=== PATIENT | female | born 1965 | race Caucasian/White ===

== ENCOUNTER 2022-05-05 04:49 | Emergency (ER) | payer BC ==
[~2022-05-05] VITALS: Ht 167.6 cm; Wt 77.1 kg
[2022-05-05 05:20] VITALS: BP_SYST 170
--- NOTE | 2022-05-05 05:24 | NUR ---
Patient to ER bed BRYAN to gown for evaluation. Side rails up.
--- NOTE | 2022-05-05 05:27 | NUR ---
ER at bedside examining patient.
--- NOTE | 2022-05-05 05:57 | NUR ---
Patient given written and verbal discharge instructions and verbalizes understanding. ER MD discussed with patient the results and treatment provided. Patient in stable condition. ID arm band removed. no Rx of given. Patient educated on pain management and to follow up with PMD. Pain Scale 4/10. Opportunity for questions provided and answered. Medication side effect fact sheet provided.
[2022-05-05 05:59] VITALS: BP_SYST 162
== END 2022-05-05 05:59 | disposition home or self-care (01) ==
LOC: SED 04:49
DX: S61.216A Laceration without foreign body of right little finger without damage to nail, initial encounter (principal); Z79.899 Other long term (current) drug therapy; W27.4XXA Contact with kitchen utensil, initial encounter; Y93.89 Activity, other specified; Y92.89 Other specified places as the place of occurrence of the external cause; Y99.8 Other external cause status
CPT/HCPCS: 99282

== ENCOUNTER 2022-08-26 16:31 | Emergency (ER) | payer BC ==
[~2022-08-26] VITALS: Ht 167.6 cm; Wt 79.4 kg
--- NOTE | 2022-08-26 16:35 | NUR ---
Pt brought by self, A&Ox4, pt presents to ER with L lower leg pain 8/10, skin pink and warm, cap refill <3, denies trauma, pt states she had a long trip last february.
[2022-08-26 16:41] VITALS: BP_SYST 144
[2022-08-26 17:41] LABS: BASOPHILS % (AUTO) 0.5 % (0.0-2.0); EOSINOPHILS # (AUTO) 0.2 K/uL (0.0-0.4); EOSINOPHILS % (AUTO) 2.6 % (0.0-4.0); HEMATOCRIT 42.5 % (36-48); HEMOGLOBIN 14.4 g/dL (12.0-16.0); LYMPHOCYTES # (AUTO) 2.2 K/uL (1.0-5.5); LYMPHOCYTES % (AUTO) 23.4 % (20.5-51.5); MEAN CORPUSCULAR HEMOGLOBIN 29 pg (27-31); MEAN CORPUSCULAR HGB CONC 34 % (32-36); MEAN CORPUSCULAR VOLUME 85 fL (79.0-98.0); MONOCYTES # (AUTO) 0.6 K/uL (0.0-1.0); MONOCYTES % (AUTO) 6.2 % (1.7-9.3); NEUTROPHILS # (AUTO) 6.2 K/uL (1.8-7.7); NEUTROPHILS % (AUTO) 67.3 % (40.0-70.0); PLATELET COUNT (AUTO) 249 K/uL (130-430); RED CELL DISTRIBUTION WIDTH 13.2 % (9.0-15.0); WHITE BLOOD COUNT (AUTO) 9.2 K/uL (4.8-10.8)
[2022-08-26 18:17] LABS: CALCIUM 9.1 mg/dL (8.4-11.0); CREATININE 0.76 mg/dL (0.55-1.30)
[2022-08-26 18:22] LABS: ALBUMIN 3.7 g/dL (3.4-4.8); TOTAL BILIRUBIN 0.3 mg/dL (0.0-1.0)
[2022-08-26 19:25] VITALS: BP_SYST 144
--- NOTE | 2022-08-26 19:25 | NUR ---
Patient given written and verbal discharge instructions and verbalizes understanding. ER DR. GRAY discussed with patient the results and treatment provided. Patient in stable condition. ID arm band removed. Patient educated on pain management and to follow up with PMD. Pain Scale 0. Opportunity for questions provided and answered. Medication side effect fact sheet provided.
== END 2022-08-26 19:25 | disposition home or self-care (01) ==
LOC: SED 16:31
DX: M79.662 Pain in left lower leg (principal); I10 Essential (primary) hypertension; Z79.899 Other long term (current) drug therapy
CPT/HCPCS: 36415; 80053; 85025; 93971; 99284